=== PATIENT | male | born 1955 | race Caucasian/White ===

== ENCOUNTER 2023-01-14 17:14 | Emergency (ER) | payer BC, MEDICARE | END 2023-01-14 19:59 | disposition home or self-care (01) | LOC: JP.ED 17:14 | DX: S23.41XA Sprain of ribs, initial encounter (principal); E78.00 Pure hypercholesterolemia, unspecified; K21.9 Gastro-esophageal reflux disease without esophagitis; E11.9 Type 2 diabetes mellitus without complications; Z79.02 Long term (current) use of antithrombotics/antiplatelets; Z79.4 Long term (current) use of insulin; Z79.899 Other long term (current) drug therapy | CPT/HCPCS: 71250; 99285 ==